=== PATIENT | female | born 1965 | race African-American/Black ===

== ENCOUNTER 2016-09-02 09:53 | Emergency (ER) | payer MEDICAID, OTHER ==
[~2016-09-02] VITALS: Ht 162.6 cm; Wt 112.0 kg
[2016-09-02] MEDS ORDERED: KETOROLAC 60MG/2ML VIAL IM ONE (11:15)
[2016-09-02 12:10] VITALS: BP 156/92
== END 2016-09-02 12:18 | disposition home or self-care (01) ==
LOC: ER 09:54
DX: S20.211A Contusion of right front wall of thorax, initial encounter (principal); I11.0 Hypertensive heart disease with heart failure; I50.9 Heart failure, unspecified; E11.9 Type 2 diabetes mellitus without complications; W01.0XXA Fall on same level from slipping, tripping and stumbling without subsequent striking against object, initial encounter; Y93.89 Activity, other specified; Y99.9 Unspecified external cause status; Y92.89 Other specified places as the place of occurrence of the external cause
CPT/HCPCS: 71020; 96372; 99284; J1885

== ENCOUNTER 2020-06-06 20:37 | Emergency (ER) | payer MEDICAID, OTHER ==
[~2020-06-06] VITALS: Ht 162.6 cm; Wt 90.0 kg
[2020-06-06 21:00] VITALS: BP 165/75
== END 2020-06-06 22:04 | disposition left against medical advice (07) ==
LOC: ER 20:37
DX: Z53.21 Procedure and treatment not carried out due to patient leaving prior to being seen by health care provider (principal)